=== PATIENT | female | born 1955 | race African-American/Black ===

== ENCOUNTER → 2018-09-23 13:31 | Outpatient (CLI) | payer MEDICAID, SELFPAY ==
[2018-09-23 14:47] LABS: Cholesterol 175 mg/dL (140-200); HDL Cholesterol 89 mg/dL (29-89); LDL Cholesterol 75 mg/dL (0-130); Thyroid Stimulating Hormone 1.18 uIU/ml (0.358-3.740); Triglycerides 53 mg/dL (30-200); VLDL Cholesterol 11 mg/dL (0-40)
== END ==
PROVIDERS: Visit Provider Emergency Medicine
DX: J44.9 Chronic obstructive pulmonary disease, unspecified (principal); K21.9 Gastro-esophageal reflux disease without esophagitis; M19.90 Unspecified osteoarthritis, unspecified site
CPT/HCPCS: 80061; 84439; 84443

== ENCOUNTER → 2018-10-04 10:07 | Outpatient (CLI) | payer MEDICAID, SELFPAY ==
[2018-10-04 10:45] VITALS: PULSE 62; PULSE 67
== END ==
PROVIDERS: PCP Emergency Medicine; Visit Provider Emergency Medicine
DX: J44.9 Chronic obstructive pulmonary disease, unspecified (principal)
CPT/HCPCS: 94060; 94618; 94640; 94726; 94729